=== PATIENT | female | born 1985 | race Caucasian/White ===

== ENCOUNTER 2025-04-30 18:17 | Emergency (ER) | payer OTHER ==
[2025-04-30] MEDS: Diphtheria,Pertussis(Acell),Tetanus Vaccine 0.5 ML Syringe IM ONE (20:03)
[2025-04-30] MEDS: Bacitracin Oint 1 GM U/D Packet TOP ONE (20:05)
== END 2025-04-30 20:10 | disposition home or self-care (01) ==
LOC: JP.ED 18:17
DX: S60.351A Superficial foreign body of right thumb, initial encounter (principal); W45.8XXA Other foreign body or object entering through skin, initial encounter
CPT/HCPCS: 90471; 90715; 99283; 99283-25